=== PATIENT | male | born 1955 | race Hispanic/Latino ===

== ENCOUNTER 2018-06-16 11:02 | Emergency (ER) | payer SELFPAY ==
[2018-06-16 11:51] VITALS: BP 173/105; PULSE 69; RESP 18; TEMP 97.3; O2SAT 98
--- NOTE | 2018-06-16 12:34 | ED PDOC ---
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 He states he lifted the heavy box without bending his knees, and since has not been able to move without discomfort, worse with bending or moving, and unrelieved by 400mg of Motrin around 10:00am. Otherwise, saddle anesthesia, numbness, urinary or fecal incontinence, and any urinary complications s/p hurting his back. PMD: none provided Past Medical History Reviewed: Historical Data, Nursing Documentation, Vital Signs Vital Signs: Last Vital Signs Temp 97.3 F L 06/16/18 11:49 Pulse 69 06/16/18 11:49 Resp 18 06/16/18 11:49 BP 173/105 H 06/16/18 11:49 Pulse Ox 98 06/16/18 11:49 - Medical History PMH: No Chronic Diseases - Surgical History Surgical History: No Surg Hx - Family History Family History: States: Unknown Family Hx - Home Medications Home Medications: Ambulatory Orders Medication Instructions Recorded Prednisone 40 mg PO DAILY #8 tab 03/21/14 Azithromycin [Zithromax] 250 mg PO DAILY #6 tab 07/16/15 DiphenhydrAMINE [Benadryl] 25 mg PO TID PRN #10 cap 07/16/15 Cyclobenzaprine [Cyclobenzaprine 10 mg PO Q8H PRN #15 tab 06/16/18 HCl] Ibuprofen [Motrin Tab] 800 mg PO Q6H PRN #30 tab 06/16/18 - Allergies Allergies/Adverse Reactions: Allergies Allergy/AdvReac Type Severity Reaction Status Date / Time No Known Allergies Allergy Verified 03/21/14 21:06 Review of Systems ROS Statement: Except As Marked, All Systems Reviewed And Found Negative Genitourinary Male: Negative for: Dysuria, Frequency, Incontinence (urinary and fecal) Musculoskeletal: Positive for: Back Pain (left lower, worse with bending and movement) Neurological: Negative for: Numbness, Other (saddle anesthesia) Physical Exam - Reviewed Nursing Documentation Reviewed: Yes Vital Signs Reviewed: Yes - Physical Exam Appears: Positive for: No Acute Distress Head Exam: Positive for: ATRAUMATIC, NORMOCEPHALIC Skin: Positive for: Normal Color, Warm. Negative for: Rash Eye Exam: Positive for: Normal appearance Neck: Positive for: Normal, Painless ROM, Supple Cardiovascular/Chest: Positive for: Regular Rate, Rhythm Respiratory: Positive for: Normal Breath Sounds. Negative for: Respiratory Distress Gastrointestinal/Abdominal: Positive for: Normal Exam, Soft. Negative for: Tenderness Back: Positive for: Normal Inspection (skin intact, no ecchymosis or erythema), Other (point tenderness to left lower back). Negative for: Vertebral Tenderness Extremity: Positive for: Normal ROM (all extremities). Negative for: Tenderness, Swelling Neurological/Psych: Positive for: Awake, Alert, Oriented (x3), Gait (patient with slight limp in ED). Negative for: Motor/Sensory Deficits - ECG O2 Sat by Pulse Oximetry: 98 (RA) Pulse Ox Interpretation: Normal Medical Decision Making Medical Decision Making: Time: 1223 Initial Impression: back pain Initial Plan: --Flexeril 10mg PO --Ibuprofen 400mg PO --Reevaluation 1347 Patient reports the pain is slightly better, able to walk better in ED. Valium 5mg PO ordered for continued pain, and after monitoring patient for 15-20 minutes, he will be discharged home with back exercises, instruction to use warm compresses, and a work note for 3 days. Return parameters discussed and patient verbalized agreement. 14:20: Patient stable for d/c. Patient given education on back exercises to do at home. No reaction noted with valium. Patient will be driven home by family member that is currently present in ED. Patient given note for work to return tuesday 06/20. Patient verbalizes understanding. Scribe Attestation: Documented by Trudy Dhaliwal, acting as a scribe for Blanca Peck APN. Provider Scribe Attestation: All medical record entries made by the Scribe were at my direction and personally dictated by me. I have reviewed the chart and agree that the record accurately reflects my personal performance of the history, physical exam, medical decision making, and the department course for this patient. I have also personally directed, reviewed, and agree with the discharge instructions and disposition. Disposition - Clinical Impression Clinical Impression: Acute back pain - Patient ED Disposition Is Patient to be Admitted: No Counseled Patient/Family Regarding: Diagnosis, Rx Given - Disposition Disposition: Routine/Home Disposition Time: 13:50 Condition: IMPROVED Prescriptions: Cyclobenzaprine [Cyclobenzaprine HCl] 10 mg PO Q8H PRN #15 tab PRN Reason: Muscle Spasm Ibuprofen [Motrin Tab] 800 mg PO Q6H PRN #30 tab PRN Reason: Pain, Moderate (4-7) Instructions: Low Back Pain in Adults, Back Exercises Forms: [employer] (Fijian), [facility] ED School/Work Excuse Print Language: AZERBAIJANI - POA Present On Arrival: None
== END 2018-06-16 14:33 | disposition home or self-care (01) ==
LOC: H.ER 11:02
DX: M54.9 Dorsalgia, unspecified (principal)